=== PATIENT | male | born 1960 | race American Indian/Alaskan Native ===

== ENCOUNTER 2017-03-29 04:55 | Emergency (ER) | payer SELFPAY ==
[2017-03-29 05:07] VITALS: BP 159/113
[2017-03-29] MEDS ORDERED: TORADOL IM ONE (05:30)
--- NOTE | 2017-03-29 06:05 | XRay Report ---
FINAL REPORT PROCEDURE: XR WRIST 2V LT TECHNIQUE: Left wrist radiographs, AP and lateral views. HISTORY: LEFT WRIST PAIN COMPARISON: No prior studies are available for comparison. FINDINGS: Fracture(s)and/or Dislocation(s): None. Alignment: Normal. 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 There are subchondral cystic changes of the distal ulna. There is no joint dislocation Soft tissues: Normal. Bone mineralization: Normal. Foreign bodies: None. IMPRESSION: There is no fracture or malalignment. There are degenerative changes as described.
--- NOTE | 2017-03-29 07:30 | Emergency Department Report ---
ED Extremity Problem HPI - General Chief complaint: Extremity Injury, Upper Stated complaint: LT WRIST INJURY Time Seen by Provider: 03/29/17 07:16 Source: patient, family Mode of arrival: Ambulatory Limitations: No Limitations - History of Present Illness Initial comments: PT states he thinks he broke his L wrist. PT states he was in [place] on Saturday and he went swimming. PT states he thinks he might have hit his wrist on the pool but denies having pain on Saturday. PT states he woke up Saturday and his L wrist was swollen but it did not hurt. PT states that on Saturday and Saturday, his pain increased. PT states his L wrist is tender, swollen and feels hot. PT reports having chills yesterday. MD Complaint: extremity pain, extremity swelling -: Gradual, days(s) (6) Location: left, upper extremity History of Same: No Severity scale (0 -10): 10 Quality: sharp, constant Consistency: constant Improves with: medication (Toradol given in ED ) Associated Symptoms: fever, rash - Related Data Previous Rx's Medication Instructions Recorded Last Taken Type Acetaminophen/Codeine [Tylenol #3] 1 tab PO Q6H PRN #12 tab 03/29/17 Unknown Rx Cephalexin [Keflex] 500 mg PO Q6HR #40 capsule 03/29/17 Unknown Rx Ibuprofen [Motrin] 600 mg PO Q8H PRN #15 tablet 03/29/17 Unknown Rx Sulfamethoxazole/Trimethoprim 1 each PO BID #20 tablet 03/29/17 Unknown Rx [Bactrim DS TAB] Allergies Allergy/AdvReac Type Severity Reaction Status Date / Time No Known Allergies Allergy Verified 03/29/17 05:02 ED Review of Systems ROS: Stated complaint: LT WRIST INJURY Other details as noted in HPI Comment: All other systems reviewed and negative Constitutional: chills, fever (subjective ) Gastrointestinal: denies: abdominal pain, nausea, vomiting Musculoskeletal: as per HPI Skin: as per HPI, change in color ED Past Medical Hx - Past Medical History Previous Medical History?: Yes Hx Hypertension: Yes (pt states he is currently not taking medication for ) - Surgical History Past Surgical History?: No - Social History Smoking Status: Never Smoker Substance Use Type: Alcohol - Medications Home Medications: Home Medications Medication Instructions Recorded Confirmed Last Taken Type Acetaminophen/Codeine [Tylenol #3] 1 tab PO Q6H PRN #12 tab 03/29/17 Unknown Rx Cephalexin [Keflex] 500 mg PO Q6HR #40 capsule 03/29/17 Unknown Rx Ibuprofen [Motrin] 600 mg PO Q8H PRN #15 tablet 03/29/17 Unknown Rx Sulfamethoxazole/Trimethoprim 1 each PO BID #20 tablet 03/29/17 Unknown Rx [Bactrim DS TAB] ED Physical Exam - General Limitations: No Limitations General appearance: alert, in no apparent distress - Head Head exam: Present: atraumatic, normocephalic, normal inspection - Eye Eye exam: Present: normal appearance. Absent: conjunctival injection - ENT ENT exam: Present: normal exam, normal external ear exam - Neck Neck exam: Present: normal inspection, full ROM - Respiratory Respiratory exam: Present: normal lung sounds bilaterally. Absent: respiratory distress, chest wall tenderness - Cardiovascular Cardiovascular Exam: Present: regular rate, normal rhythm - Extremities Exam Extremities exam: Present: tenderness - Expanded Upper Extremity Exam Left Upper Arm exam: Present: normal inspection, full ROM Elbow exam: Present: normal inspection, full ROM Forearm Wrist exam: Present: full ROM, tenderness, swelling, erythema. Absent: ecchymosis, crepidus, tenderness over anatomical snuff box Hand Wrist exam: Present: full ROM, tenderness, swelling, erythema (To L post hand and ulcar aspect of L wrist ) Vascular: Present: radial pulse. Absent: vascular compromise - Back Exam Back exam: Present: normal inspection, full ROM - Neurological Exam Neurological exam: Present: alert, oriented X3, normal gait - Psychiatric Psychiatric exam: Present: normal affect, normal mood - Skin Skin exam: Present: warm, dry, intact, ecchymosis (and warmth to L wrist and L hand ) ED Course Vital Signs 03/29/17 05:02 Temperature 98.3 F Pulse Rate 94 H Respiratory 20 Rate Blood Pressure 159/113 O2 Sat by Pulse 100 Oximetry - Reevaluation(s) Reevaluation #1: 03/29/17 07:34 PT aware of XR results. Due to unknown injury and pt's presentation further work up initiated. PT aware. Reevaluation #2: 03/29/17 08:09 PT aware of lab results and plan of care. PT aware he will need to return to the ED in 2 days for recheck and sooner if he has increase in pain, swelling, or fevers. PT verbalizes understanding. - Pulse Oximetry Interpretation Digit-Finger Initial Pulse Oximetry Readin Actions Taken: none ED Medical Decision Making - Lab Data Result diagrams: 03/29/17 07:29 03/29/17 07:29 Lab Results 03/29/17 03/29/17 Range/Units 07:29 07:29 WBC 7.6 (4.5-11.0) K/mm3 RBC 4.45 (3.65-5.03) M/mm3 Hgb 14.1 (11.8-15.2) gm/dl Hct 42.4 (35.5-45.6) % MCV 95 H (84-94) fl MCH 32 (28-32) pg MCHC 33 (32-34) % RDW 13.6 (13.2-15.2) % Plt Count 257 (140-440) K/mm3 Lymph % (Auto) 16.6 (13.4-35.0) % Franklin % (Auto) 11.6 H (0.0-7.3) % Eos % (Auto) 0.8 (0.0-4.3) % Baso % (Auto) 0.5 (0.0-1.8) % Lymph # 1.3 (1.2-5.4) K/mm3 Franklin # 0.9 H (0.0-0.8) K/mm3 Eos # 0.1 (0.0-0.4) K/mm3 Baso # 0.0 (0.0-0.1) K/mm3 Seg Neutrophils % 70.5 H (40.0-70.0) % Seg Neutrophils # 5.4 (1.8-7.7) K/mm3 Sodium 138 (137-145) mmol/L Potassium 4.0 (3.6-5.0) mmol/L Chloride 100.2 (98-107) mmol/L Carbon Dioxide 22 (22-30) mmol/L Anion Gap 20 mmol/L BUN 11 (9-20) mg/dL Creatinine 1.1 (0.8-1.5) mg/dL Estimated GFR > 60 ml/min BUN/Creatinine Ratio 10.00 % Glucose 106 H (75-100) mg/dL Uric Acid 6.1 (3.5-7.6) mg/dL Calcium 9.0 (8.4-10.2) mg/dL - Radiology Data Radiology results: report reviewed XR L wrist - NAP - degenerative changes - Differential Diagnosis cellulitis, gouty arthritis Critical Care Time: No Critical care attestation.: If time is entered above; I have spent that time in minutes in the direct care of this critically ill patient, excluding procedure time. ED Disposition Clinical Impression: Cellulitis Qualifiers: Site of cellulitis: extremity Site of cellulitis of extremity: upper extremity Laterality: left Qualified Code(s): L03.114 - Cellulitis of left upper limb Disposition: - TO HOME OR SELFCARE Is pt being admited?: No Does the pt Need Aspirin: No Condition: Stable Instructions: Cellulitis (ED) Additional Instructions: No driving or alcohol after taking Tylenol #3 for your pain Return to the ED in 2 days for recheck Return to the ED sooner if you develop fever, nausea, vomiting, or the redness and swelling increases Follow up with PCP in 3-5 days for bp recheck Prescriptions: Acetaminophen/Codeine [Tylenol #3] 1 tab PO Q6H PRN #12 tab PRN Reason: Pain , Severe (7-10) Cephalexin [Keflex] 500 mg PO Q6HR #40 capsule Ibuprofen [Motrin] 600 mg PO Q8H PRN #15 tablet PRN Reason: Pain Sulfamethoxazole/Trimethoprim [Bactrim DS TAB] 1 each PO BID #20 tablet Referrals: PRIMARY CAREMD [Primary Care Provider] - 3-5 Days RADHA GAMINO MD [Staff Physician] - 3-5 Days [facility] [Outside] - 3-5 Days Forms: Accompanied Note, Work/School Release Form(ED) Time of Disposition: 08:39
[2017-03-29 07:46] LABS: Basophils % (Auto) 0.5 % (0.0-1.8); Eosinophils % (Auto) 0.8 % (0.0-4.3); Hematocrit 42.4 % (35.5-45.6); Hemoglobin 14.1 gm/dl (11.8-15.2); Mean Corpuscular HGB Conc 33 % (32-34); Mean Corpuscular Hemoglobin 32 pg (28-32); Mean Corpuscular Volume 95 fl (84-94); Platelet Count 257 K/mm3 (140-440); Red Blood Count 4.45 M/mm3 (3.65-5.03); Red Cell Distribution Width 13.6 % (13.2-15.2); White Blood Count 7.6 K/mm3 (4.5-11.0)
[2017-03-29 08:02] LABS: Anion Gap 20 mmol/L; Blood Urea Nitrogen 11 mg/dL (9-20); Carbon Dioxide 22 mmol/L (22-30); Chloride 100.2 mmol/L (98-107); Glucose 106 mg/dL (75-100); Sodium 138 mmol/L (137-145); Uric Acid 6.1 mg/dL (3.5-7.6)
[2017-03-29] MEDS ORDERED: XYLOCAINE 1% MPF 5 mL INFILTRATI ONE (08:05)
[2017-03-29] MEDS ORDERED: ROCEPHIN IM ONE (08:05)
[2017-03-29] MEDS ORDERED: NORCO 10/325 PO ONE (09:05)
[2017-03-29] MEDS ORDERED: NORCO 10/325 ONE (09:06)
== END 2017-03-29 09:13 | disposition home or self-care (01) ==
LOC: ED 04:55
DX: L03.114 Cellulitis of left upper limb (principal); I10 Essential (primary) hypertension
CPT/HCPCS: 36415; 73100; 80048; 84550; 85025; 96372; 99284; J0696; J1885

== ENCOUNTER 2022-03-29 13:58 | Emergency (ER) | payer SELFPAY ==
[2022-03-29 14:59] VITALS: BP 152/92
[2022-03-29] MEDS ORDERED: IBUPROFEN 800 MG TAB PO ONE (15:02)
[2022-03-29] MEDS ORDERED: HYDROcodone/ACETAMINOPHEN 5-325 MG TAB PO ONE (15:02)
--- NOTE | 2022-03-29 15:03 | Emergency Department Report ---
ED Animal Bite HPI - General Chief Complaint: Animal Bite Stated Complaint: Spider bite Time Seen by Provider: 03/29/22 14:53 Source: patient Mode of arrival: Ambulatory Limitations: No Limitations - History of Present Illness Initial Comments: 62-year-old male presents to the emergency department with insect bite. Patient reports he was stung by a spider on Saturday, initially area started as a smaller area and has progressively gotten worse explaining his fingers causing swelling. Describes pain as sharp as constant, with subjective fever chills body aches headache sweats. Negative COVID test at home. Otherwise no vision changes, no numbness tingling, no weakness, no murmur no nausea vomiting abdominal pain. MD Complaint: other (Insect bite) -: days(s) Location: other (Left arm) Left: Forearm Animal Control Notified: No Mechanism: bite Pain Description: constant Severity scale (0 -10): 10 Associated Symptoms: erythema, chills - Related Data Previous Rx's Medication Instructions Recorded Last Taken Type Ibuprofen [Motrin] 600 mg PO Q8H PRN #15 tablet 03/29/17 Unknown Rx cephALEXin [Keflex] 500 mg PO Q6HR #40 capsule 03/29/17 Unknown Rx Acetaminophen/Codeine [Tylenol 1 tab PO Q6H PRN #12 tab 03/29/22 Unknown Rx /Codeine # 3 tab] Ibuprofen [Motrin 800 MG tab] 800 mg PO ONCE PRN #21 tablet 03/29/22 Unknown Rx Sulfamethoxazole/Trimethoprim 1 each PO BID #20 tablet 03/29/22 Unknown Rx [Bactrim DS TAB] Allergies Allergy/AdvReac Type Severity Reaction Status Date / Time No Known Allergies Allergy Verified 03/29/17 05:02 ED Review of Systems ROS: Stated complaint: BITE Other details as noted in HPI Comment: All other systems reviewed and negative Constitutional: see HPI, chills, fever, malaise Respiratory: no symptoms reported. denies: cough, SOB with exertion Cardiovascular: denies: chest pain, palpitations, dyspnea on exertion Gastrointestinal: denies: nausea, vomiting, diarrhea, constipation Genitourinary: denies: urgency, dysuria Skin: rash, lesions, change in color Neurological: denies: headache, weakness, numbness, paresthesias Psychiatric: denies: anxiety, depression ED Past Medical Hx - Past Medical History Hx Hypertension: Yes (pt states he is currently not taking medication for ) - Surgical History Past Surgical History?: No - Social History Smoking Status: Never Smoker - Medications Home Medications: Home Medications Medication Instructions Recorded Confirmed Last Taken Type Ibuprofen [Motrin] 600 mg PO Q8H PRN #15 tablet 03/29/17 Unknown Rx cephALEXin [Keflex] 500 mg PO Q6HR #40 capsule 03/29/17 Unknown Rx Acetaminophen/Codeine [Tylenol 1 tab PO Q6H PRN #12 tab 03/29/22 Unknown Rx /Codeine # 3 tab] Ibuprofen [Motrin 800 MG tab] 800 mg PO ONCE PRN #21 tablet 03/29/22 Unknown Rx Sulfamethoxazole/Trimethoprim 1 each PO BID #20 tablet 03/29/22 Unknown Rx [Bactrim DS TAB] ED Physical Exam - General Limitations: No Limitations General appearance: alert, in no apparent distress - Head Head exam: Absent: atraumatic - Eye Eye exam: Present: normal appearance Pupils: Present: normal accommodation - ENT ENT exam: Present: normal exam, normal orophraynx - Neck Neck exam: Present: normal inspection. Absent: tenderness - Respiratory Respiratory exam: Present: normal lung sounds bilaterally. Absent: respiratory distress, wheezes - Cardiovascular Cardiovascular Exam: Present: regular rate, normal rhythm - GI/Abdominal GI/Abdominal exam: Present: soft. Absent: distended, tenderness - Extremities Exam Extremities exam: Present: tenderness, joint swelling, other (Left forearm left fingers swelling warmth tender on palpation. No fluctuance, cap refill sensation pulses intact.) - Back Exam Back exam: Present: normal inspection, full ROM. Absent: tenderness - Neurological Exam Neurological exam: Present: alert, oriented X3, CN II-XII intact, normal gait. Absent: motor sensory deficit ED Course Vital Signs 03/29/22 14:58 Temperature 98.7 F Pulse Rate 87 Respiratory 18 Rate Blood Pressure 152/92 O2 Sat by Pulse 94 Oximetry Critical care attestation.: If time is entered above; I have spent that time in minutes in the direct care of this critically ill patient, excluding procedure time. ED Disposition Clinical Impression: Spider bite, Cellulitis Disposition: HOME / SELF CARE / HOMELESS Is pt being admited?: No Does the pt Need Aspirin: No Condition: Stable Instructions: Cellulitis, Adult, Spider Bite, [id number] Prescriptions: Sulfamethoxazole/Trimethoprim [Bactrim DS TAB] 1 each PO BID #20 tablet Ibuprofen [Motrin 800 MG tab] 800 mg PO ONCE PRN #21 tablet PRN Reason: Pain , Severe (7-10) Acetaminophen/Codeine [Tylenol /Codeine # 3 tab] 1 tab PO Q6H PRN #12 tab PRN Reason: Pain , Severe (7-10) Referrals: WILIAN BERNARD MD [Staff Physician] - 3-5 Days
== END 2022-03-29 15:15 | disposition home or self-care (01) ==
LOC: ED 13:58
DX: T63.301A Toxic effect of unspecified spider venom, accidental (unintentional), initial encounter (principal); Y92.89 Other specified places as the place of occurrence of the external cause; L03.90 Cellulitis, unspecified
CPT/HCPCS: 99282

== ENCOUNTER 2022-04-02 09:23 | Emergency (ER) | payer SELFPAY ==
[2022-04-02] MEDS ORDERED: LIDOCAINE-MPF (1%) 10 MG/1 ML VIAL 5 ML INFILTRATI ONE (09:48)
[2022-04-02] MEDS ORDERED: cloNIDine 0.1 MG TAB PO ONE (09:49)
--- NOTE | 2022-04-02 10:44 | Emergency Department Report ---
- General Chief complaint: Skin/Abscess/Foreign Body Stated complaint: SPIDER BITE Time Seen by Provider: 04/02/22 09:48 Source: patient Mode of arrival: Ambulatory Limitations: No Limitations - Related Data Previous Rx's Medication Instructions Recorded Last Taken Type cephALEXin [Keflex] 500 mg PO Q12HR #20 cap 04/02/22 Unknown Rx Allergies Allergy/AdvReac Type Severity Reaction Status Date / Time No Known Allergies Allergy Verified 03/29/17 05:02 Abscess Boil HPI - HPI Chief Complaint: Skin/Abscess/Foreign Body Stated Complaint: SPIDER BITE Time Seen by Provider: 04/02/22 09:48 Home Medications: Previous Rx's Medication Instructions Recorded Last Taken Type cephALEXin [Keflex] 500 mg PO Q12HR #20 cap 04/02/22 Unknown Rx Allergies/Adverse Reactions: Allergies Allergy/AdvReac Type Severity Reaction Status Date / Time No Known Allergies Allergy Verified 03/29/17 05:02 ED Review of Systems ROS: Stated complaint: SPIDER BITE Other details as noted in HPI Comment: All other systems reviewed and negative ED Past Medical Hx - Past Medical History Previous Medical History?: Yes Hx Hypertension: Yes (pt states he is currently not taking medication for ) - Surgical History Past Surgical History?: No - Family History Family history: no significant - Social History Smoking Status: Never Smoker Substance Use Type: None - Medications Home Medications: Home Medications Medication Instructions Recorded Confirmed Last Taken Type cephALEXin [Keflex] 500 mg PO Q12HR #20 cap 04/02/22 Unknown Rx ED Physical Exam - General Limitations: No Limitations General appearance: alert, in no apparent distress - Head Head exam: Present: atraumatic, normocephalic - Eye Eye exam: Present: normal appearance - ENT ENT exam: Present: mucous membranes moist - Neck Neck exam: Present: normal inspection - Respiratory Respiratory exam: Present: normal lung sounds bilaterally. Absent: respiratory distress - Cardiovascular Cardiovascular Exam: Present: regular rate, normal rhythm. Absent: systolic murmur, diastolic murmur, rubs, gallop - GI/Abdominal GI/Abdominal exam: Present: soft, normal bowel sounds - Rectal Rectal exam: Present: deferred - Extremities Exam Extremities exam: Present: normal inspection - Back Exam Back exam: Present: normal inspection - Neurological Exam Neurological exam: Present: alert, oriented X3 - Psychiatric Psychiatric exam: Present: normal affect, normal mood - Skin Skin exam: Present: warm, dry, intact, normal color, other. Absent: rash ED Course Vital Signs 04/02/22 04/02/22 09:35 10:04 Temperature 97.7 F Pulse Rate 96 H 78 Respiratory 14 Rate Blood Pressure 147/104 154/110 O2 Sat by Pulse 97 Oximetry ED Medical Decision Making - Medical Decision Making Vital Signs (72 hours) 04/02/22 04/02/22 09:35 10:04 Temperature 97.7 F Pulse Rate 96 H 78 Respiratory 14 Rate Blood Pressure 147/104 154/110 O2 Sat by Pulse 97 Oximetry rocephin 1 gm IM in ER educated on bp and bp risk no cp no sob he states it is always high when at doctor Critical care attestation.: If time is entered above; I have spent that time in minutes in the direct care of this critically ill patient, excluding procedure time. ED Disposition Clinical Impression: Spider bite, Cellulitis, Elevated blood pressure reading Disposition: HOME / SELF CARE / HOMELESS Is pt being admited?: No Does the pt Need Aspirin: No Condition: Stable Instructions: Cellulitis, Adult Additional Instructions: warm compresses to arm stop bactrum given to you the other day med as ordered today until gone this may take some time to improve follow up with pcp next week for recheck referral below diet and activity as tolerated motrin or tylenol for pain monitor your blood pressure- see MD about it- you may need medications Referrals: WILIAN BERNARD MD [Staff Physician] - 3-5 Days Time of Disposition: 10:45
[2022-04-02 11:10] VITALS: BP 119/74
== END 2022-04-02 11:09 | disposition home or self-care (01) ==
LOC: ED 09:23
DX: L03.114 Cellulitis of left upper limb (principal); R03.0 Elevated blood-pressure reading, without diagnosis of hypertension; I10 Essential (primary) hypertension; Z79.899 Other long term (current) drug therapy; W57.XXXD Bitten or stung by nonvenomous insect and other nonvenomous arthropods, subsequent encounter
CPT/HCPCS: 96372; 99282; J0696; J3490